=== PATIENT | male | born 1950 | race Caucasian/White ===

== ENCOUNTER 2019-05-26 09:32 | Day surgery (SDC) | payer MEDICARE ==
[~2019-05-26] VITALS: Ht 177.8 cm; Wt 109.1 kg
[2019-05-26] MEDS ORDERED: SODIUM CHLORIDE 0.9% 1,000 ML IV SCH ×2 (10:14→13:16)
[2019-05-26] MEDS ORDERED: PLEASE ENTER HEIGHT AND WEIGHT MC SCH (10:30)
[2019-05-26] MEDS ORDERED: DIPHENHYDRAMINE 50 MG/ML, 1ML IVPush ONE (10:30)
[2019-05-26] MEDS ORDERED: PLEASE ENTER ALLERGIES MC SCH (10:30)
[2019-05-26 10:40] VITALS: BP 145/84
[2019-05-26] MEDS ORDERED: LEVO750T6 PO (10:40)
[2019-05-26] MEDS ORDERED: DILT240C77 PO (10:40)
[2019-05-26] MEDS ORDERED: ASCO1TAB2 PO (10:40)
[2019-05-26] MEDS ORDERED: UBID100C41 PO (10:40)
[2019-05-26] MEDS ORDERED: VITA1TAB19 PO (10:40)
[2019-05-26] MEDS ORDERED: APIX5TAB PO (10:40)
[2019-05-26] MEDS ORDERED: ATOR-2 PO (10:40)
[2019-05-26] MEDS ORDERED: MAGN400T26 PO (10:40)
[2019-05-26] MEDS ORDERED: FLEC50TA25 PO (10:40)
[2019-05-26] MEDS ORDERED: DIPHENHYDRAMINE 50 MG/ML, 1ML ONE (11:13)
[2019-05-26] MEDS ORDERED: FENTANYL PF 100 MCG/2ML ONE (12:48)
[2019-05-26] MEDS ORDERED: MIDAZOLAM 1 MG/ML, 5ML ONE (12:48)
[2019-05-26] MEDS ORDERED: VERAPAMIL 2.5 MG/ML, 2ML ONE (12:48)
[2019-05-26] MEDS ORDERED: HEPARIN 1,000 UNITS/ML, 10ML ONE (12:49)
[2019-05-26] MEDS ORDERED: LIDOCAINE-MPF 1%, 5ML ONE (12:49)
[2019-05-26] MEDS ORDERED: EZET10TA70 PO (13:43)
[2019-05-26] MEDS ORDERED: ICOS1CAP PO (13:45)
== END 2019-05-26 15:44 | disposition home or self-care (01) ==
LOC: CACL 09:32
PROVIDERS: ATTEND Internal Medicine Cardiovascular Disease
DX: R93.1 Abnormal findings on diagnostic imaging of heart and coronary circulation (principal); I25.110 Atherosclerotic heart disease of native coronary artery with unstable angina pectoris; I25.84 Coronary atherosclerosis due to calcified coronary lesion; I25.83 Coronary atherosclerosis due to lipid rich plaque; I48.91 Unspecified atrial fibrillation; I10 Essential (primary) hypertension; E78.2 Mixed hyperlipidemia; E66.3 Overweight; Z68.34 Body mass index [BMI] 34.0-34.9, adult; Z79.01 Long term (current) use of anticoagulants; Z79.899 Other long term (current) drug therapy
CPT/HCPCS: 93454; 99156; C1769; C1894; J1200; J1644; J2250; J3010; Q9967